=== PATIENT | female | born 1990 | race Caucasian/White ===

== ENCOUNTER 2016-11-28 16:47 | Outpatient (CLI) | payer MEDICAID ==
--- NOTE | 2016-11-28 18:04 | Non Stress Test Report ---
Non Stress Test Datetime Report Generated by CPN: 11/28/2016 18:04 DEMOGRAPHIC EGA NST: 38.3 INDICATION Indication for Study: Ordered by Provider Indication for Study (NST) Other: poly VITAL SIGNS Temperature - NST: 98.2 Pulse - NST: 80 RESP - NST: 16 NBPSYS NST: 112 NBPDIA NST: 70 MONITORING Monitor Explained: Monitor Explained; Test Explained; Patient Verbalized Understanding Time on Monitor: 11/28/2016 16:45 Time off Monitor: 11/28/2016 17:30 NST Duration: 45 NST INTERVENTIONS NST Interventions: PO Hydration; Reposition Patient Physician Notified NST: Dr Farley BABY A: [id number] BABY A Movement : Present Contraction Frequency : 1-3 FHR Baseline : 145 Accelerations : 15X15 Decelerations : None Variability : Moderate 6-25bpm NST Review: Meets Criteria for Reactive NST NST Review and Verified By : MADAY HICKS RN NST Results: Reactive NST REPORT Report Trigger: Send Report
== END 2016-11-28 18:10 | disposition home or self-care (01) ==
LOC: LC 16:47
PROVIDERS: ATTEND Obstetrics & Gynecology
PROC: 4A1HXCZ Monitoring of Products of Conception, Cardiac Rate, External Approach (ICD-10-PCS; principal; 2016-11-28)
DX: O40.3XX0 Polyhydramnios, third trimester, not applicable or unspecified (principal); Z3A.38 38 weeks gestation of pregnancy
CPT/HCPCS: 59025

== ENCOUNTER 2016-12-10 17:48 | Inpatient (IN) | payer MEDICAID, OTHER ==
[2016-12-13 18:55] LABS: APPEARANCE,URINE SLIGHTLY-CLOUDY; BILIRUBIN,URINE NEGATIVE (NEGATIVE); GLUCOSE, URINE NEGATIVE (NEGATIVE); KETONES,URINE NEGATIVE (NEGATIVE); LEUKOCYTE ESTERASE,URINE NEGATIVE (NEGATIVE); NITRITE,URINE NEGATIVE (NEGATIVE); PROTEIN,URINE NEGATIVE (NEGATIVE); URINE SPECIFIC GRAVITY 1.005; UROBILINOGEN,URINE NEGATIVE mg/dL (<2.0)
[2016-12-13 19:16] LABS: URINE BARBITURATES SCREEN NEGATIVE; URINE METHADONE SCREEN NEGATIVE; URINE OPIATES LOW NEGATIVE; URINE PHENCYCLIDINE SCREEN NEGATIVE
[2016-12-13 19:42] LABS: ABSOLUTE LYMPHOCYTES (AUTO) 1.9 10^3/uL (0.5-4.7); ABSOLUTE MONOCYTES (AUTO) 0.9 10^3/uL (0.1-1.4); ABSOLUTE NEUT (AUTO) 8.5 10^3/uL (1.7-8.2); BASOPHILS % (AUTO) 0.2 % (0-2); EOSINOPHILS % (AUTO) 0.3 % (0-6); HEMATOCRIT 35.3 % (36.0-47.0); HEMOGLOBIN 12.3 g/dL (12.0-15.5); HGB HCT DIFFERENCE 1.6; LYMPHOCYTES % (AUTO) 16.4 % (13-45); MEAN CORPUSCULAR HGB CONC 34.8 g/dL (32.0-36.0); MEAN CORPUSCULAR VOLUME 95 fl (80-97); MONOCYTES % (AUTO) 8.1 % (3-13); RED BLOOD COUNT 3.71 10^6/uL (3.72-5.28); RED CELL DISTRIBUTION WIDTH 12.8 % (11.5-14.0); WHITE BLOOD COUNT 11.3 10^3/uL (4.0-10.5)
[2016-12-13] MEDS ORDERED: DINOPROSTONE 10 MG VAGINAL INSERT.SR ONE (19:50)
[2016-12-14] MEDS ORDERED: ZOLPIDEM TARTRATE 5 MG TABLET ONE ×2 (00:24→00:26)
[2016-12-14] MEDS ORDERED: MISOPROSTOL 0.1 MG TABLET PO ONE (12:48)
[2016-12-14] MEDS ORDERED: MISOPROSTOL 0.1 MG TABLET PV ONE ×2 (12:49→20:22)
[2016-12-14] MEDS ORDERED: MISOPROSTOL 0.1 MG TABLET ONE ×2 (13:09→20:28)
--- NOTE | 2016-12-14 18:20 | L&D Progress Notes ---
PROGRESS NOTES Datetime Report Generated by CPN: 12/14/2016 18:20 PROGRESS NOTE Impression: Normal Progression of Labor Procedures: Sterile Vag Exam Plan: Induction Informed Consent Obtained: Vaginal Delivery; Induction of Labor; Risks, Benefits and Alternatives Discussed Vital Signs : Within Normal Limits Comment: Cervix ft/25/-3. Will repeat Cytotec 25mcg per vagina after ambulation. Then should be able to place [place] cather for additional cervical ripening. VAGINAL EXAM Dilatation: 0 Effacement: 0 Station: -3 Contractions: rare MEMBRANES Membranes: Intact FETUS A FHR - Baseline: 125 Monitoring: External US Variability: Moderate 6-25bpm Accelerations: 15X15 Decelerations: None Estimated Weight (gm): 3800 Presentation: Vertex SIGNATURE SIGNATURE: [id number] SIGNATURE: [id number] SIGNATURE: [id number] Signature: with User ID: [email or web address]
[2016-12-14] MEDS ORDERED: NALBUPHINE HCL INJ 10 MG/1 ML AMPULE ONE (22:21)
--- NOTE | 2016-12-14 22:39 | L&D Progress Notes ---
PROGRESS NOTES Datetime Report Generated by CPN: 12/14/2016 22:38 PROGRESS NOTE Impression: Normal Progression of Labor Procedures: Sterile Vag Exam Procedures- Other: Cooks catheter Plan: Continue Present Management; Induction; Cervical Ripening Informed Consent Obtained: Vaginal Delivery; Risks, Benefits and Alternatives Discussed Vital Signs : Reviewed Comment: Pt feeling ctx and shaking. Cvx 1/50/-3. Cooks catheter placed to tension. Will begin pitocin when cervidil timing is up. Anticipate . REassuring FWB. VAGINAL EXAM Dilatation: 1 Effacement: 50 Station: -3 Contractions: q 1-2 MEMBRANES Membranes: Intact FETUS A Monitoring: External US Variability: Moderate 6-25bpm Accelerations: 10X10 Decelerations: None FETUS C SIGNATURE: [id number];[id number] Signature: with User ID: [email or web address]
[2016-12-15] MEDS ORDERED: FENTANYL CITRATE INJ/PF 100 MCG/2 ML AMPUL IV ONE (00:11)
[2016-12-15] MEDS ORDERED: FENTANYL CITRATE INJ/PF 100 MCG/2 ML AMPUL ONE ×2 (00:17→19:45)
[2016-12-15] MEDS ORDERED: EPHEDRINE SULFATE INJ 50 MG/1 ML AMPULE ONE ×2 (04:58→19:45)
[2016-12-15] MEDS ORDERED: FENTANYL/BUPIVACAINE/NS/PF 200 MCG/100 ML RTUINJ EPI ONE ×2 (04:59→14:54)
[2016-12-15] MEDS ORDERED: BUPIVACAINE HCL 0.25 % INJ/PF (2.5 MG/1 ML) 30 ML VIAL ONE (04:59)
--- NOTE | 2016-12-15 07:30 | L&D Progress Notes ---
PROGRESS NOTES Datetime Report Generated by CPN: 12/15/2016 07:30 PROGRESS NOTE Impression: Normal Progression of Labor Procedures: Sterile Vag Exam Procedures- Other: SROM Plan: Continue Present Management; Induction Informed Consent Obtained: Vaginal Delivery; Risks, Benefits and Alternatives Discussed Vital Signs : Reviewed; Within Normal Limits Comment: Pt now s/p epidural and feeling well. Cooks catheter removed. cvx 5/5/0/-3. Still whitehead bulb cervix, not active laboring cervix. Pitocin not started last night due to frequencyof ctx. Pitocin to start this am. Anticpate VAGINAL EXAM Dilatation: 5 Effacement: 50 Station: -3 Contractions: q 1-3 MEMBRANES Membranes: Ruptured Amniotic Fluid Color: Clear FETUS A FHR - Baseline: 135 Monitoring: External US Variability: Moderate 6-25bpm Accelerations: 15X15 Decelerations: None FHR Category: Category I FETUS C SIGNATURE: [id number];[id number] Signature: with User ID: [email or web address]
[2016-12-15] MEDS ORDERED: ONDANSETRON HCL INJ/PF 4 MG/2 ML SDV ONE ×2 (07:48→15:04)
[2016-12-15] MEDS ORDERED: KETOROLAC TROMETHAMINE 60 MG/2 ML SDV ONE (07:48)
[2016-12-15] MEDS ORDERED: PHENYLEPHRINE HCL INJ/PF 10 MG/1 ML SDV ONE (07:48)
[2016-12-15] MEDS ORDERED: METOCLOPRAMIDE HCL INJ/PF 10 MG/2 ML SDV ONE (07:48)
[2016-12-15] MEDS ORDERED: DEXAMETHASONE SOD PHOSPHATE INJ 4 MG/1 ML VIAL ONE (07:48)
[2016-12-15] MEDS ORDERED: OXYTOCIN/NORMAL SALINE 20 UNIT/1,000 ML RTUINJ ONE ×2 (08:50→19:44)
[2016-12-15] MEDS ORDERED: LIDOCAINE 2% INJ-PF (20 MG/ML) 10 ML AMPUL ONE (15:48)
[2016-12-15] MEDS ORDERED: CEFAZOLIN 2 GM/D5W RTU 2 GM/50 ML RTUPB IV ONE ×2 (16:50→17:30)
[2016-12-15] MEDS ORDERED: CITRIC ACID/SODIUM CITRATE ORAL SOLN 15 ML UDCUP ONE (19:28)
[2016-12-15] MEDS ORDERED: OXYTOCIN 10 UNIT/ML VIAL ONE (19:44)
[2016-12-15] MEDS ORDERED: MIDAZOLAM 2 MG/2 ML INJ ONE (19:45)
[2016-12-15] MEDS ORDERED: PROMETHAZINE HCL INJ 25 MG/1 ML VIAL IV PRN ×3 (20:12→20:57)
[2016-12-15] MEDS ORDERED: ONDANSETRON HCL INJ/PF 4 MG/2 ML SDV IV PRN (20:12)
[2016-12-15] MEDS ORDERED: MORPHINE SULFATE 10 MG/ML INJ IV PRN ×2 (20:12→20:57)
[2016-12-15] MEDS ORDERED: MEPERIDINE HCL/PF INJ 25 MG/1 ML DISP.SYRIN IV PRN (20:12)
[2016-12-15] MEDS ORDERED: FENTANYL CITRATE INJ/PF 100 MCG/2 ML AMPUL IV PRN ×3 (20:12)
[2016-12-15] MEDS ORDERED: DIPHENHYDRAMINE HCL 50 MG/ML VIAL IV PRN (20:12)
[2016-12-15] MEDS ORDERED: MEASLES,MUMPS&RUBELLA VACC/PF 0.5 ML VIAL SUBCUT PRN (20:57)
[2016-12-15] MEDS ORDERED: DIPH/PERTUSS(ACELL)/TETANUS VAC/PF 0.5 ML SYR (>=10YO) IM PRN (20:57)
[2016-12-15] MEDS ORDERED: SIMETHICONE 80 MG TAB.CHEW PO PRN (20:57)
[2016-12-15] MEDS ORDERED: ACETAMINOPHEN 325 MG TABLET PO PRN (20:57)
[2016-12-15] MEDS ORDERED: OXYCODONE-ACETAMINOPHEN 5-325 MG TABLET PO PRN (20:57)
[2016-12-15] MEDS ORDERED: ACETAMINOPHEN 100 ML IV PRN (20:57)
[2016-12-15] MEDS ORDERED: OXYTOCIN/NORMAL SALINE 20 UNIT/1,000 ML RTUINJ IV PRN (20:57)
[2016-12-15] MEDS ORDERED: ACETAMINOPHEN 100 ML IV ONE (20:59)
[2016-12-15] MEDS ORDERED: AMPICILLIN SOD/SULBACTAM 3 GM VIAL IV SCH (21:00)
[2016-12-15] MEDS ORDERED: MEPERIDINE HCL/PF INJ 25 MG/1 ML DISP.SYRIN ONE (21:24)
--- NOTE | 2016-12-15 21:48 | OPERATIVE REPORT E ---
Operative Report NAME: ALEXANDER GRANGER : 1990 AGE: 26Y DATE OF SURGERY: 12/15/2016 ROOM: LR200 PREOPERATIVE DIAGNOSES: 1. INTRAUTERINE AT 40 WEEKS AND 6 DAYS. 2. FAILURE TO PROGRESS. POSTOPERATIVE DIAGNOSES: 1. INTRAUTERINE AT 40 WEEKS AND 6 DAYS. 2. FAILURE TO PROGRESS. PROCEDURE: Low transverse hysterotomy section. SURGEON: JON STARK M.D. ANESTHESIOLOGIST: CORTNEY AGUILAR M.D. ANESTHESIA: Spinal. FINDINGS: Female infant in cephalic presentation with Apgars of 8 and 9, weight 8 pounds 3 ounces. COMPLICATIONS: None. ESTIMATED BLOOD LOSS: 600 mL. SPECIMENS REMOVED: None. PROCEDURE IN DETAIL: The patient was taken to the operating room and prepared and draped in a normal sterile fashion in a supine position with a leftward tilt. A skin incision was made with a scalpel and carried through the underlying layer of fascia with the same scalpel. The fascia was nicked and extended laterally with surgeon finger fracture. The rectus muscle was tented with Kochers and divided from the fascia sharply with Mayomarques. The rectus muscle was divided. The peritoneal cavity was entered bluntly with good visualization of the bladder and the uterus. A bladder blade was inserted and the hysterotomy was nicked with a scalpel and extended laterally with surgeon finger fracture. The infant was then delivered atraumatically. The nose and mouth were suctioned with a suction bulb, the cord was clamped and cut, and the was handed off to awaiting pediatricians. Cord blood was collected. The placenta was removed manually. The uterus was exteriorized and cleared of clots and debris. The hysterotomy was closed with 0 Monocryl in a running locked fashion. A second layer of the same suture was used to imbricate to ensure hemostasis. The uterus was then returned to the peritoneal cavity which was cleared of clots and debris. The rectus muscle and peritoneum were reapproximated with 2-0 chromic mattress stitch and the fascia was closed with 0 Vicryl. The subcutaneous layer was closed with plain catgut, and the skin was closed with 4-0 Vicryl. The patient tolerated the procedure well. Sponge, lap and needle counts were correct times 2, and the patient was taken to recovery in stable condition. DICTATING PHYSICIAN: JON STARK M.D. [id number] PHY#: [id number] ID: [id number] JOB#: [id number] ACCT: [id number] cc:JON STARK M.D. >
[2016-12-15] MEDS ORDERED: CEFAZOLIN 2 GM/D5W RTU 2 GM/50 ML RTUPB IV SCH (22:00)
--- NOTE | 2016-12-15 22:36 | Delivery Summary ---
Del Sum A-C Datetime Report Generated by CPN: 12/15/2016 22:36 DELIVERY PERSONNEL DELIVERY PERSONNEL: [id number] Delivery Doctor:: Rose Keys MD Anesthesiologist:: Carlos Lazaro MD WEB APPLICATION DEV SPECIALIST:: Jennifer Valle CRNA Labor and Delivery Nurse:: Nathalia Perkins RNclub director Nurse:: Saray Carballo RN Neonatal Nurse Practitioner:: KEVIN Pepe Nursery Nurse:: Joaquina Vega RN Chemical Mixer/FELT HAT FLANGING OPERATOR: ST Rena Chemical Mixer/FELT HAT FLANGING OPERATOR: Marianne Malik ST MATERNAL INFORMATION Delivery Anesthesia: Epidural; Spinal Medications After Delivery: Pitocin Drip 20 Units/1000ml NSS Maternal Complications: None LABOR SUMMARY EDC: 12/09/2016 00:00 No. Babies in Womb: 1 Attempted: No Labor Anesthesia: Epidural LABOR INFORMATION Reason for Induction: Polyhydramnios Onset of Labor: 12/15/2016 07:18 Cervical Ripening Agents: Cervidil; [place] Balloon; Cytotec @ Oxytocin: Induction Group B Beta Strep: negative Steroids Given: None Reason Steroids Not Administered: Not Applicable MEMBRANES Membranes Rupture Method: Spontaneous Rupture of Membranes: 12/15/2016 07:18 Length of Rupture (hr): 12.92 Amniotic Fluid Color: Clear Amniotic Fluid Amount: Small Amniotic Fluid Odor: Normal STAGES OF LABOR Stage 3 hr: 0 Stage 3 min: 1 Total Time in Labor hr: 12 Total Time in Labor min: 56 VAGINAL DELIVERY Episiotomy: None Laceration Extension: N/A Laceration Type: None Laceration Repair: Not Applicable Sponge Count Correct: N/A Sharps Count Correct: N/A CSECTION DELIVERY Primary Indication: Failure of Descent Secondary Indication: Secondary Arrest of Dilatation CSection Urgency: Non-Scheduled CSection Incidence: Primary Labor: Labor Elective: Nonelective CSection Incision: Lower Uterine Transverse BABY A INFORMATION Infant Delivery Date/Time: 12/15/2016 20:13 Method of Delivery: Born in Route : No : N/A Forceps: N/A Vacuum Extraction: N/A Shoulder Dystocia : No PRESENTATION/POSITION BABY A Presentation: Cephalic Cephalic Presentation: Vertex Breech Presentation: N/A PLACENTA INFORMATION BABY A Placenta Delivery Time : 12/15/2016 20:14 Placenta Method of Delivery: Manual Removal Placenta Status: Delivered SCORES BABY A Heart Rate 1 min: >100 bpm Resp Effort 1 min: Good Cry Reflex Irritability 1 min: Cough or Sneeze or Pulls Away Muscle Tone 1 min: Active Motion Color 1 min: Blue/Pale Resuscitation Effort 1 min: Tactile Stimulation SCORE 1 MIN: 8 Heart Rate 5 min: >100 bpm Resp Effort 5 min: Good Cry Reflex Irritability 5 min: Cough or Sneeze or Pulls Away Muscle Tone 5 min: Active Motion Color 5 min: Body [place], Extremities Blue Resuscitation Effort 5 min: Tactile Stimulation SCORE 5 MIN: 9 INFANT INFORMATION BABY A Gestational Age at Delivery: 40.6 Gestational Status: Full Term- 39- 40.6 Weeks Outcome : Liveborn Condition : Stable Sex: Female IDENTIFICATION BABY A Verification Date/Time: 12/15/2016 20:18 ID Band Number: [id number] Mother's Name Verified: Yes Infant RN Verifying Infant: SMauricio Burns, RN _ K. Los, RN WEIGHT/LENGTH BABY A Birthweight (gm): 3700 Infant Weight (lb): 8 Infant Weight (oz): 3 Infant Length (in): 21.00 Length (cm): 53.34 CORD INFORMATION BABY A No. Cord Vessels: 3 Nuchal Cord : N/A Cord Blood Taken: Yes-For Eval (Mom's Blood Type - or O+) Suction: Mouth; Nose ASSESSMENT BABY A Complications: Polyhydramnios Infant Respirations: Appears Normal Skin to Skin: Yes Skin to Skin Time (min): 20 min Webfocus Developer/ALS Called : No Care By: Consuelo Vega RN Transferred To: Nursery BABY B INFORMATION : N/A
--- NOTE | 2016-12-15 23:13 | Admission Physical ---
Datetime Report Generated by CPN: 12/15/2016 23:13 CURRENT ADMISSION Hx Assessment: The History has been Reviewed and is Current Chief Complaint: Scheduled Induction of Labor Indication for Induction: Polyhydramnios Admit Plan: Admit to Unit; Initiate Labor Induction Protocol ALLERGIES Medication Allergies: No Medication Allergies: No Known Allergies (12/13/2016) Medication Allergies: No Known Allergies (10/05/2014) Latex: No Latex Allergies Latex: No Latex Allergies OBSTETRICAL HISTORY EDC: 12/09/2016 00:00 : 1 Para: 0 Term: 0 : 0 SAB: 0 IAB: 0 Ectopic: 0 Livin Cesareans: 0 VBACs: 0 Multiple Births: 0 Gestational Diabetes: No Rh Sensitization: No Incompetent Cervix: No CACHORRO: No Infertility: No ART Treatment: No Uterine Anomaly: No IUGR: No Hx Previous C/S: No Macrosomia: No Hx Loss/Stillborn: No PIH: No Hx : No Placenta Previa/Abruption: No Depression/PP Depression: No PTL/PROM: No Post Hemorrhage: No Obstetrical History Comments: G1: current, poly SEE RECORDS Alcohol: No Marijuana : No Cocaine: No Other Illicit Drugs: No Cigarettes: Former Smoker. 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 Surgery: No Heart Disease: No Hosp/Surgery: Yes Autoimmune Disorder: No Anesthetic Complications: No Kidney Disease: No Abnormal Pap Smear: No Neuro/Epilepsy: No Psychiatric Disorders: No Other Medical Diseases: No Hepatitis/Liver Disease: No Significant Family History: No Varicosities/Phlebitis: No Trauma/Violence : No Thyroid Dysfunction: No Medical History Comments: gum surgery 2006, wisdom teeth INFECTIOUS HISTORY Gonorrhea: No Genital Herpes: No Chlamydia: No Tuberculosis: No Syphilis: No Hepatitis: No HIV/AIDS Exposure: No Rash or Viral Illness: No HPV: No PHYSICAL EXAM General: Normal HEENT: Normal Neurologic: Normal Thyroid: Deferred Heart: Normal Lungs: Normal Breast: Normal Back: Normal Abdomen: Normal Genitourinary Exam: Normal Extremities: Normal DTRs: Normal Pelvic Type: Adequate Vital Signs: Reviewed VAGINAL EXAM Dilatation: 5 Dilatation: 1 Dilatation: 0 Effacement: 50 Effacement: 50 Effacement: 0 Station: -3 Station: -3 Station: -3 Contraction Comments: q 1-3 Contraction Comments: q 1-2 Contraction Comments: rare MEMBRANES Membranes: Ruptured Membranes: Intact Membranes: Intact Amniotic Fluid Color: Clear FETUS A EGA: 40.5 Monitoring: External US FHR- Baseline: 125 Variability: Moderate 6-25bpm Accelerations: 15X15 Decelerations: None FHR Category: Category I Estimated Weight (gm): 3800 Presentation: Vertex Admit Comment: IOL for polyhydramnios GBS negative bilateral renal dilation, peds f/u Cervidil overnight PLANS FOR LABOR AND DELIVERY Labor and Delivery: None Pain Management: Epidural Feeding Preference: Both Benefit of Breast Feed Discussed: Yes Circumcision: N/A INFORMED CONSENT Informed Consent Obtained: Vaginal Delivery; Risks, Benefits and Alternatives Discussed Informed Consent Obtained: Vaginal Delivery; Risks, Benefits and Alternatives Discussed Informed Consent Obtained: Vaginal Delivery; Induction of Labor; Risks, Benefits and Alternatives Discussed Assignment: Debbie Oh MD Signature: with User ID: [email or web address] : with User ID: [email or web address]
[2016-12-15] MEDS: KETOROLAC TROMETHAMINE INJ/PF 30 MG/1 ML SDV IV SCH (23:42)
[2016-12-16] MEDS: IBUPROFEN 800 MG TABLET PO SCH ×5 (00:06→23:51)
[2016-12-16] MEDS: OXYCODONE-ACETAMINOPHEN 5-325 MG TABLET PO PRN ×6 (00:40→23:53)
[2016-12-16] MEDS: KETOROLAC TROMETHAMINE INJ/PF 30 MG/1 ML SDV IV SCH ×2 (05:35→13:49)
[2016-12-16 06:46] LABS: HEMATOCRIT 30.4 % (36.0-47.0); HEMOGLOBIN 10.5 g/dL (12.0-15.5); HGB HCT DIFFERENCE 1.1; MEAN CORPUSCULAR HEMOGLOBIN 32.6 pg (27.0-33.4); MEAN CORPUSCULAR HGB CONC 34.5 g/dL (32.0-36.0); MEAN CORPUSCULAR VOLUME 95 fl (80-97); RED BLOOD COUNT 3.21 10^6/uL (3.72-5.28); RED CELL DISTRIBUTION WIDTH 13.2 % (11.5-14.0); WHITE BLOOD COUNT 21.2 10^3/uL (4.0-10.5)
[2016-12-16] MEDS: PRENATAL VITAMIN W-O CA NO5/FE FUMARATE/FA CAPSULE PO SCH (09:39)
[2016-12-16] MEDS: DOCUSATE SODIUM 100 MG CAPSULE PO SCH ×2 (09:40→17:31)
--- NOTE | 2016-12-16 11:55 | PDOC PROGRESS REPORT ---
Subjective-OB Subjective: Post Delivery Day: 26 year old. Denies any needs at this time. Pt reports light bleeding, regular diet, voiding without difficulty and +flatus. She has no complaints. Physical Exam (OB) Vital Signs: Temp Pulse Resp BP Pulse Ox 98.0 F 65 18 118/58 L 99 12/16/16 08:35 12/16/16 08:35 12/16/16 08:35 12/16/16 08:35 12/16/16 08:35 Intake & Output 12/15/16 12/16/16 12/17/16 06:59 06:59 06:59 Intake Total 1000 Output Total 600 800 Balance 400 -800 - Dressing Removed: No Incision: Dressing - Lochia Lochia Amount: Moderate 25-50 ml Lochia Color: Rubra/Red - Abdomen Description: Soft, Round Hernia Present: No Fundal Description: Firm, Midline Fundal Height: u/u - u/2 Objective-Diagnostic Laboratory: 12/16/16 06:18 12/16/16 12/16/16 06:18 06:18 WBC 21.2 H RBC 3.21 L Hgb 10.5 L Hct 30.4 L MCV 95 MCH 32.6 MCHC 34.5 RDW 13.2 Plt Count 178 Blood Type O NEGATIVE Assessment and Plan(PN) - Assessment and Plan (1) Status post primary low transverse section Is this a current diagnosis for this admission?: Yes (2) Polyhydramnios affecting in third trimester Is this a current diagnosis for this admission?: Yes (3) Failure to progress in labor Is this a current diagnosis for this admission?: Yes - Time Spent with Patient Time with patient: Less than 15 minutes Medications reviewed and adjusted accordingly: Yes - Disposition Anticipated Discharge: Home Within: within 24 hours
[2016-12-17 04:43] LABS: ABSOLUTE LYMPHOCYTES (AUTO) 2.6 10^3/uL (0.5-4.7); ABSOLUTE MONOCYTES (AUTO) 0.7 10^3/uL (0.1-1.4); ABSOLUTE NEUT (AUTO) 12.1 10^3/uL (1.7-8.2); BASOPHILS % (AUTO) 0.1 % (0-2); EOSINOPHILS % (AUTO) 0.2 % (0-6); HEMATOCRIT 23.7 % (36.0-47.0); HGB HCT DIFFERENCE 0.6; LYMPHOCYTES % (AUTO) 16.7 % (13-45); MEAN CORPUSCULAR HEMOGLOBIN 32.8 pg (27.0-33.4); MEAN CORPUSCULAR HGB CONC 34.3 g/dL (32.0-36.0); MEAN CORPUSCULAR VOLUME 96 fl (80-97); MONOCYTES % (AUTO) 4.8 % (3-13); RED BLOOD COUNT 2.48 10^6/uL (3.72-5.28); RED CELL DISTRIBUTION WIDTH 13.1 % (11.5-14.0); SEGMENTED NEUTROPHILS % (AUTO) 78.2 % (42-78); WHITE BLOOD COUNT 15.5 10^3/uL (4.0-10.5)
[2016-12-17 04:45] LABS: HEMOGLOBIN 8.1 g/dL (12.0-15.5)
[2016-12-17] MEDS: OXYCODONE-ACETAMINOPHEN 5-325 MG TABLET PO PRN ×3 (06:42→17:08)
[2016-12-17] MEDS: IBUPROFEN 800 MG TABLET PO SCH ×3 (06:42→17:08)
--- NOTE | 2016-12-17 09:09 | PDOC PROGRESS REPORT ---
Subjective-OB Subjective: Post Delivery Day: 26 year old. Denies any needs at this time Doing well, ready to go home, unsure if baby is going, voiding, ambulating, pain under control Physical Exam (OB) Vital Signs: Temp Pulse Resp BP Pulse Ox 97.9 F 67 16 111/63 100 12/17/16 04:09 12/17/16 04:09 12/17/16 04:09 12/17/16 04:12/17/16 04:09 Intake & Output 12/16/16 12/17/16 12/18/16 06:59 06:59 06:59 Intake Total 1000 700 Output Total 600 800 Balance 400 -100 - PIH/Pre-Eclampsia DTR's: 2 + Clonus: Negative Headache: Absent Epigastric Pain: No Visual Changes: No - Dressing Removed: Yes Incision: Well Approximated Closure Type: Steri-Strips - Lochia Lochia Amount: Small 10-25 ml Lochia Color: Rubra/Red - Abdomen Description: Soft, Round Hernia Present: No Fundal Description: Firm, Midline Fundal Height: u/u - u/2 Objective-Diagnostic Laboratory: 12/17/16 04:29 12/16/16 12/17/16 06:18 04:29 WBC 15.5 H RBC 2.48 L Hgb 8.1 L D Hct 23.7 L MCV 96 MCH 32.8 MCHC 34.3 RDW 13.1 Plt Count 161 Seg Neutrophils % 78.2 H Lymphocytes % 16.7 Monocytes % 4.8 Eosinophils % 0.2 Basophils % 0.1 Absolute Neutrophils 12.1 H Absolute Lymphocytes 2.6 Absolute Monocytes 0.7 Absolute Eosinophils 0.0 Absolute Basophils 0.0 Blood Type O NEGATIVE Assessment and Plan(PN) - Assessment and Plan (1) Anemia due to acute blood loss Is this a current diagnosis for this admission?: Yes (2) Status post primary low transverse section Is this a current diagnosis for this admission?: Yes (3) Polyhydramnios affecting in third trimester Is this a current diagnosis for this admission?: Yes - Time Spent with Patient Time with patient: Less than 15 minutes Medications reviewed and adjusted accordingly: Yes - Disposition Anticipated Discharge: Home Within: Other - home today, probable nesting room
--- NOTE | 2016-12-17 09:19 | PDOC DISCHARGE SUMMARY ---
Final Diagnosis Discharge Date: 12/17/16 - Final Diagnosis (1) Anemia due to acute blood loss Is this a current diagnosis for this admission?: Yes (2) Status post primary low transverse section Is this a current diagnosis for this admission?: Yes (3) Polyhydramnios affecting in third trimester Is this a current diagnosis for this admission?: Yes Discharge Data - Discharge Medication Home Medications: Vit,Calc76/Iron/Folic [Prenatabs Rx Tablet] 1 tab PO DAILY 11/28/16 Oxycodone HCl/Acetaminophen [Percocet 5-325 mg Tablet] 1 tab PO Q4HP PRN #30 tablet 12/17/16 Gestational Age: 40.6 Reason(s) for Admission: Induction of Labor - polyhydramnios Procedures: NST, Ultrasound Intrapartum Procedure(s): : Low Cervical, Transverse - Diagnosis Test Laboratory: Temp Pulse Resp BP Pulse Ox 98 F 73 15 110/59 L 98 12/17/16 08:00 12/17/16 08:00 12/17/16 08:00 12/17/16 08:00 12/17/16 08:00 12/13/16 12/13/16 12/16/16 18:34 19:30 06:18 RBC 3.71 L 3.21 L Hgb 12.3 10.5 L Hct 35.3 L 30.4 L Urine Opiates Screen NEGATIVE 12/17/16 04:29 RBC 2.48 L Hgb 8.1 L D Hct 23.7 L Urine Opiates Screen - Discharge information/Instructions Discharge Activity: Balance Activity w/Rest, No Lifting Over 10 Pounds, No Lifting/Push/Pulling, Pelvic Rest, No tub bath Discharge Diet: As Tolerated, Regular, Cardiac Disposition: HOME, SELF-CARE Follow up with: [facility] in: 5, Days
[2016-12-17] MEDS: DOCUSATE SODIUM 100 MG CAPSULE PO SCH ×2 (10:30→17:09)
[2016-12-17] MEDS: PRENATAL VITAMIN W-O CA NO5/FE FUMARATE/FA CAPSULE PO SCH (10:30)
[2016-12-17 15:57] VITALS: BP 120/58
== END 2016-12-17 20:41 | disposition home or self-care (01) | DRG 765 ==
LOC: LR 12-13 18:23 → 2S 12-15 23:12
PROVIDERS: ADMIT Specialist; ATTEND Specialist
PROC: 4A1HXCZ Monitoring of Products of Conception, Cardiac Rate, External Approach (ICD-10-PCS; 2016-12-13)
PROC: 10D00Z1 Extraction of Products of Conception, Low, Open Approach (ICD-10-PCS; principal; 2016-12-15)
PROC: 3E033VJ Introduction of Other Hormone into Peripheral Vein, Percutaneous Approach (ICD-10-PCS; 2016-12-15)
PROC: 3E0234Z Introduction of Serum, Toxoid and Vaccine into Muscle, Percutaneous Approach (ICD-10-PCS; 2016-12-16)
DX: O62.1 Secondary uterine inertia (principal); D62 Acute posthemorrhagic anemia; O40.3XX0 Polyhydramnios, third trimester, not applicable or unspecified; O26.893 Other specified pregnancy related conditions, third trimester; O99.02 Anemia complicating childbirth; Z37.0 Single live birth; Z3A.40 40 weeks gestation of pregnancy; Z87.891 Personal history of nicotine dependence; Z67.41 Type O blood, Rh negative
CPT/HCPCS: 1961; 36415; 80307; 81005; 85025; 85027; 85461; 86592; 86850; 86870; 86900; 86901; 94799; C1726; J0131; J0690; J1100; J1885; J2175; J2250; J2270; J2300; J2370; J2405; J2590; J2765; J2790; J3010; J3490

== ENCOUNTER 2016-12-12 10:44 | Outpatient (CLI) | payer MEDICAID ==
--- NOTE | 2016-12-12 11:19 | Non Stress Test Report ---
Non Stress Test Datetime Report Generated by CPN: 12/12/2016 11:18 DEMOGRAPHIC Test Number: 1 EGA NST: 40.3 INDICATION Indication for Study: Ordered by Provider Indication for Study (NST) Other: LC MONITORING Monitor Explained: Monitor Explained; Test Explained; Patient Verbalized Understanding Time on Monitor: 12/12/2016 10:55 Time off Monitor: 12/12/2016 11:16 NST Duration: 21 NST INTERVENTIONS NST Interventions: PO Hydration Physician Notified NST: NEilsen BABY A: [id number] BABY A Movement : Present Contraction Frequency : Irregular FHR Baseline : 120 Accelerations : 15X15 Variability : Moderate 6-25bpm NST Review: Meets Criteria for Reactive NST NST Review and Verified By : Consuelo Monge RN NST Results: Reactive NST REPORT Report Trigger: Send Report
--- NOTE | 2016-12-12 12:36 | RADIOLOGY REPORT (SQ) ---
EXAM DESCRIPTION: U/S OB LIMITED COMPLETED DATE/TIME: 12/12/2016 12:23 pm REASON FOR STUDY: JUNO- SDP total, polyhydramnios COMPARISON: None. TECHNIQUE: Limited transvaginal grayscale ultrasound for evaluation of specific requested obstetrica l parameters. LIMITATIONS: None. FINDINGS: CERVICAL LENGTH: 4.6 cm Closed. JUNO: 13.2 cm cm. Vernix is present. FHR: 136 beats per minute. PRESENTATION: Cephalic. OTHER: Largest pocket of fluid measures 5.7 cm. IMPRESSION: LIMITED OBSTETRICAL ULTRASOUND WITH MEASURED PARAMETERS DELINEATED ABOVE. Trimester of : Third trimester - 28 weeks to delivery. TECHNICAL DOCUMENTATION: JOB ID: [id number] [employer]- All Rights Reserved
== END 2016-12-12 12:28 | disposition home or self-care (01) ==
LOC: LC 10:44
PROVIDERS: ATTEND Specialist
PROC: 4A1HXCZ Monitoring of Products of Conception, Cardiac Rate, External Approach (ICD-10-PCS; principal; 2016-12-12)
DX: O40.3XX0 Polyhydramnios, third trimester, not applicable or unspecified (principal); O47.1 False labor at or after 37 completed weeks of gestation; Z3A.40 40 weeks gestation of pregnancy
CPT/HCPCS: 59025; 76815